=== PATIENT | female | born 1955 | race Caucasian/White ===

== ENCOUNTER → 2017-03-27 | Outpatient (CLI) | payer OTHER ==
--- NOTE | 2017-03-28 09:00 | MM ---
Reason for exam: screening (asymptomatic). Last mammogram was performed 1 year and 2 months ago. History: Patient is postmenopausal. Reduction of the left breast. Reduction of the right breast. Physical Findings: A clinical breast exam by your physician is recommended on an annual basis and results should be correlated with mammographic findings. MG Screening Mammo w CAD Bilateral CC and MLO view(s) were taken. Prior study comparison: January 13, 2016, right breast MG work up mamm w CAD RT. January 04, 2016, bilateral MG screening mammo w CAD. There are scattered fibroglandular densities. Finding: There are typically benign calcifications in both breasts. There is a chronic nodularity bilaterally, stable. No significant changes in finding since January 13, 2016 and January 04, 2016. ASSESSMENT: Benign, BI-RAD 2 RECOMMENDATION: Routine screening mammogram of both breasts in 1 year.
== END | disposition home or self-care (01) ==
LOC: RADMAMWWP 15:27
PROVIDERS: ATTEND Family Medicine
DX: Z12.31 Encounter for screening mammogram for malignant neoplasm of breast (principal)

== ENCOUNTER 2018-06-09 07:56 | Day surgery (SDC) | payer BC, OTHER ==
[2018-06-04 16:06] VITALS: BMI 38.7
[2018-06-09 08:45] VITALS: RESP 16; TEMP 97
[2018-06-09] MEDS: LACTATED RINGERS 1,000 ML IV SCH ×2 (08:59→10:02)
[2018-06-09 09:00] LABS: Glucose,Whole Blood 167 mg/dL (75-99)
[2018-06-09] MEDS ORDERED: PROPOFOL 10 MG/ML 20 ML VIAL IV ONE (10:03)
[2018-06-09] MEDS ORDERED: LIDOCAINE 1% INJ 10MG/ML (20 ML MDV) ONE (10:03)
[2018-06-09 11:16] VITALS: BP 107/58; PULSE 67
--- NOTE | 2018-06-09 14:25 | P.PCN ---
Date of Procedure: 06/09/18 Procedure(s) Performed: Procedure: Esophagogastroduodenoscopy and biopsy. Preoperative: Epigastric pain and suspected gastroesophageal reflux. Postoperative diagnosis: 1. Small sliding hiatal hernia with no obvious esophagitis or complicated reflux disease. 2. Mild antral gastritis and a medium-sized polyp in the cardia. 3. Biopsies obtained from the duodenum, antrum, cardia polyp and esophagus. Operation sedation: Was provided by anesthesia. Brief clinical history: The patient is a 62-year-old female who is scheduled for this evaluation because of epigastric and upper abdominal pains and suspected gastroesophageal reflux. Procedure: With the patient on her left lateral decubitus position and after informed consent and adequate sedation, I passed the Olympus-GIF 160 video upper endoscope through the cricopharyngeus down the esophagus. GE junction was around 37 cm from the incisors and there was a small sliding hiatal hernia but no obvious esophagitis or complicated reflux disease. The endoscope was then passed into the stomach which was insufflated with air and inspected in detail including the retroflex view in the cardia. There was some mottling and erythema in the antrum but no ulcers or erosions. A 1 cm polyp was noted in the cardia close to the GE junction which is unlikely to be causing any symptoms. Biopsies were obtained from that polyp at the end of the examination as I was biopsying other areas as mentioned below. Pyloric channel, duodenal bulb, post bulbar area and descending duodenum appeared healthy. Because of her symptoms, I obtained biopsies from the duodenum, antrum and esophagus as well as from the cardia polyp. The patient tolerated the procedure well. Plan: The patient was reassured. Will await biopsy results and make further plans based on her course and biopsy results. I would be happy to see in the office if her symptoms persist.
== END 2018-06-09 11:28 | disposition home or self-care (01) ==
LOC: ORWHC2ENDO 07:56
DX: K29.50 Unspecified chronic gastritis without bleeding (principal); K31.7 Polyp of stomach and duodenum; K44.9 Diaphragmatic hernia without obstruction or gangrene; I10 Essential (primary) hypertension; E11.9 Type 2 diabetes mellitus without complications; J45.909 Unspecified asthma, uncomplicated; Z88.1 Allergy status to other antibiotic agents; E78.5 Hyperlipidemia, unspecified; Z79.84 Long term (current) use of oral hypoglycemic drugs; Z79.899 Other long term (current) drug therapy
CPT/HCPCS: 88305; 43239; J2001; J2704

== ENCOUNTER → 2019-10-20 | Outpatient (CLI) | payer MEDICARE, OTHER ==
--- NOTE | 2019-10-22 10:18 | MM ---
Reason for exam: screening (asymptomatic). Last mammogram was performed 2 years and 7 months ago. History: Patient is postmenopausal. Reduction of the left breast. Reduction of the right breast. Physical Findings: A clinical breast exam by your physician is recommended on an annual basis and results should be correlated with mammographic findings. MG 3D Screening Mammo W/Cad Bilateral CC and MLO view(s) were taken. Prior study comparison: March 27, 2017, bilateral MG screening mammo w CAD. January 13, 2016, right breast MG work up mamm w CAD RT. Global asymmetry left upper outer quadrant. Post mammoplasty changes. No significant changes when compared with prior studies. ASSESSMENT: Benign, BI-RAD 2 RECOMMENDATION: Routine screening mammogram of both breasts in 1 year.
== END | disposition home or self-care (01) ==
LOC: RADMAMWWP 08:01
PROVIDERS: ATTEND Family Medicine
DX: Z12.31 Encounter for screening mammogram for malignant neoplasm of breast (principal)
CPT/HCPCS: 77063; 77067

== ENCOUNTER → 2019-10-23 | Outpatient (CLI) | payer MEDICARE, OTHER ==
--- NOTE | 2019-10-23 16:07 | BD ---
EXAMINATION TYPE: Axial Bone Density DATE OF EXAM: 10/23/2019 COMPARISON: Prior DEXA 2011. CLINICAL HISTORY: Disorder of bone. Height: 63.5 Weight: 210.5 FRAX RISK QUESTIONS: Alcohol (3 or more units per day): no Family History (Parent hip fracture): no Glucocorticoids (More than 3mos): no (Ex: prednisone, prednisolone, methylprednisolone, dexamethasone, and hydrocortisone). History of Fracture in Adulthood: no Secondary Osteoporosis: 1. Type 1 Diabetes: no 2. Hyperthyroidism: no 3. Menopause before 45: no 4. Malnutrition: yes 5. Chronic liver disease: no Rheumatoid Arthritis: no Current Tobacco Use: no RISK FACTORS HISTORY OF: Family History of Osteoporosis: no Active: yes Diet low in dairy products/other sources of calcium: yes Postmenopausal woman: age 53 Lost more than 2 inches in height since high school: no MEDICATIONS: lisinopril, metformin, omeprazole, atorvastatin, fish oil, vitamins Additional History: EXAM MEASUREMENTS: Bone mineral densitometry was performed using the [employer] System. Bone mineral density as measured about the Lumbar spine is: ----- L1-L4(G/cm2): 1.657 T Score Values are as follows: ----- L2: 4.6 ----- L3: 59 ----- L4: 3.8 ----- L1-L4: 4.0 Bone mineral density has: increased 28.5 % since study of: 12.24.2011 Bone mineral density about the R hip (g/cm2): 1.096 Bone mineral density about the L hip (g/cm2): 1.158 T Score values are as follows: -----R Neck: 0.4 -----L Neck: 0.9 -----R Total: 1.7 -----L Total: 1.9 Bone mineral density has: decreased -4.0 % since study of: 12.24.2011 IMPRESSION: Normal (Values between +1 and -1 indicate normal bone mass). Consider repeating this study in 5 year s or sooner if there is some new clinical indication. NOTE: T-SCORE=SD OF THE YOUNG ADULT MEAN.
== END ==
LOC: RADBDWWP 14:16
PROVIDERS: ATTEND Physician Assistant Medical
DX: M84.9 Disorder of continuity of bone, unspecified (principal); M89.8X9 Other specified disorders of bone, unspecified site
CPT/HCPCS: 77080

== ENCOUNTER → 2019-10-28 | Outpatient (CLI) | payer MEDICARE, OTHER ==
--- NOTE | 2019-10-28 11:04 | FL ---
EXAMINATION TYPE: FL barium swallow DATE OF EXAM: 10/28/2019 COMPARISON: None HISTORY: Dysphagia food sticking, vomiting TECHNIQUE: A double air contrast esophagram study is performed. Overhead radiographs and fluoroscopi c imaging is performed. FINDINGS: Esophagus dilates to normal caliber has normal contour to the gastroesophageal junction. Gastroesopha geal junction opens to normal caliber. There is a small self reducing sliding type hiatal hernia. A f ew tertiary contractions are evident within the distal esophagus during the exam. There is complete s tripping of the esophageal bolus in the horizontal drinking position. No reflux was observed. Fluoroscopy time: 44 seconds Images: 14 IMPRESSIONS: 1. Mild presbyesophagus. 2. Small self reducing sliding type hiatal hernia.
== END ==
LOC: RADUSWWP 09:50
PROVIDERS: ATTEND Physician Assistant Medical
DX: K22.8 Other specified diseases of esophagus (principal); K44.9 Diaphragmatic hernia without obstruction or gangrene; E11.9 Type 2 diabetes mellitus without complications
CPT/HCPCS: 74220

== ENCOUNTER → 2020-06-03 | Outpatient (CLI) | payer MEDICARE, OTHER | END | disposition home or self-care (01) | LOC: LABWHC1 11:30 | PROVIDERS: ATTEND Family Medicine | DX: R05 Cough (principal) | CPT/HCPCS: U0003; C9803 ==

== ENCOUNTER → 2020-11-18 | Outpatient (CLI) | payer MEDICARE, OTHER ==
--- NOTE | 2020-11-21 10:26 | MM ---
Reason for exam: screening (asymptomatic). Last mammogram was performed 1 year and 1 month ago. History: Patient is postmenopausal. Reduction of the left breast. Reduction of the right breast. Physical Findings: A clinical breast exam by your physician is recommended on an annual basis and results should be correlated with mammographic findings. MG 3D Screening Mammo W/Cad Bilateral CC and MLO view(s) were taken. Prior study comparison: October 20, 2019, bilateral MG 3d screening mammo w/cad. March 27, 2017, bilateral MG screening mammo w CAD. The breast tissue is heterogeneously dense. This may lower the sensitivity of mammography. Stable benign calcifications. There is no discrete abnormality. No significant changes when compared with prior studies. ASSESSMENT: Benign, BI-RAD 2 RECOMMENDATION: Routine screening mammogram of both breasts in 1 year.
== END | disposition home or self-care (01) ==
LOC: RADMAMWWP 08:55
PROVIDERS: ATTEND Family Medicine
DX: Z12.31 Encounter for screening mammogram for malignant neoplasm of breast (principal)
CPT/HCPCS: 77063; 77067

== ENCOUNTER → 2021-03-17 | Outpatient (CLI) | payer MEDICARE, OTHER ==
--- NOTE | 2021-03-17 16:09 | US ---
EXAMINATION TYPE: US transvaginal DATE OF EXAM: 03/17/2021 COMPARISON: NONE CLINICAL HISTORY: R10.2 pelvic and perineal pain. Pain and lump partial hysterectomy. TECHNIQUE: Transvaginal (TV EXAM MEASUREMENTS: Uterus: Surgically absent cm Endometrial Stripe: Surgically absent cm Right Ovary: Obscured by bowel gas Left Ovary: Obscured by bowel gas. 1. Uterus status post hysterectomy surgically absent 2. Endometrium: Surgically absent 3. Right Ovary: Obscured by overlying bowel gas 4. Left Ovary: Obscured by overlying bowel gas 5. Bilateral Adnexa: wnl 6. Posterior cul-de-sac: wnl IMPRESSION: 1. Status post hysterectomy. 2. The ovaries are not seen within the adnexa likely due to overlying bowel gas.
== END | disposition home or self-care (01) ==
LOC: RADUSWWP 15:20
PROVIDERS: ATTEND Family Medicine
DX: R10.2 Pelvic and perineal pain (principal); Z90.710 Acquired absence of both cervix and uterus
CPT/HCPCS: 76830

== ENCOUNTER → 2022-07-24 | Outpatient (CLI) | payer MEDICARE, OTHER ==
--- NOTE | 2022-07-25 13:23 | XR ---
Lumbosacral spine HISTORY: Back pain 5 views of lumbosacral spine submitted. No comparisons. Lumbar vertebral bodies show preserved height and there is a spinal curvature convex left centered at L3. Bone mineralization is reduced. Is multilevel spondylosis. Loss of disc height is present at int ervertebral levels, multilevel vacuum disc phenomenon is present. Sclerosis is present in the posteri or elements. Atherosclerotic vascular calcifications are present in the aorta iliac distribution. Joshua gical clips are present in the right upper quadrant. No evident spondylolysis. IMPRESSION: Degenerative disc disease, facet arthropathy, osteopenia, scoliosis
== END | disposition home or self-care (01) ==
LOC: RADXRYALE 16:24
PROVIDERS: ATTEND Physician Assistant Medical
DX: M51.37 Other intervertebral disc degeneration, lumbosacral region (principal); M47.817 Spondylosis without myelopathy or radiculopathy, lumbosacral region; M41.87 Other forms of scoliosis, lumbosacral region; M85.88 Other specified disorders of bone density and structure, other site
CPT/HCPCS: 72110

== ENCOUNTER → 2022-08-01 | Outpatient (CLI) | payer MEDICARE, OTHER ==
--- NOTE | 2022-08-02 08:50 | MM ---
Reason for Exam: Screening (asymptomatic). Last mammogram was performed 1 year(s) and 8 month(s) ago. Patient History: Menarche at age 8. First Full-Term at age 15. Hysterectomy at age 53. Postmenopausal. Reduction on the Right side. Reduction on the Left side. Risk Values: Anjelica 5 year model risk: 1.4%. NCI Lifetime model risk: 4.4%. Prior Study Comparison: 06/04/2000 Left Diagnostic Ultrasound, [facility]. 04/29/2007 Bilateral Diagnostic Mammogram, [facility]. 02/10/2014 Bilateral Screening Mammogram, [facility]. 01/13/2016 Right Diagnostic Mammogram, [facility]. 01/13/2016 Right Diagnostic Ultrasound, [facility]. 03/27/2017 Bilateral Screening Mammogram, [facility]. 10/20/2019 Bilateral Screening Mammogram, [facility]. 11/18/2020 Bilateral Screening Mammogram, [facility]. Tissue Density: The breast tissue is heterogeneously dense. This may lower the sensitivity of mammography. Findings: Analyzed By CAD. There is no suspicious group of microcalcifications or new suspicious mass in either breast. Stable benign calcifications. Chronic nodularity within the right breast. No significant change from prior exams. Overall Assessment: Benign, BI-RAD 2 Management: Screening Mammogram of both breasts in 1 year. A clinical breast exam by your physician is recommended on an annual basis and results should be correlated with mammographic findings. Electronically signed and approved by: Andres Lowry D.O.
== END | disposition home or self-care (01) ==
LOC: RADMAMWWP 16:46
PROVIDERS: ATTEND Family Medicine
DX: Z12.31 Encounter for screening mammogram for malignant neoplasm of breast (principal); Z78.0 Asymptomatic menopausal state
CPT/HCPCS: 77063; 77067

== ENCOUNTER → 2023-01-30 | Outpatient (CLI) | payer MEDICARE, OTHER ==
--- NOTE | 2023-01-30 21:05 | MR ---
EXAMINATION TYPE: MR lumbar spine wo con DATE OF EXAM: 01/30/2023 10:18 AM COMPARISON: . CLINICAL INDICATION:Female, 67 years old with history of M51.36 OTHER INTERVERTEBRAL DISC DEGENERATIO N, LUM; PHH, Low back pain into rt lower extremity TECHNIQUE: Multi planar, multi sequence imaging was performed utilizing: T1-weighted, T2-weighted, a nd turbo inversion recovery imaging of the lumbar spine. IV Contrast: cc . None. FINDINGS: Alignment: The lumbar vertebral bodies have preserved heights and alignment. Cord: The conus medullaris and the distal spinal cord appear unremarkable with regards to their signa l intensity and morphology. Bones/Discs: Bone signal is within normal limits. No abnormal bony edema on inversion recovery sequen toma. Multilevel degenerative disc disease is noted and most pronounced at the . Intervertebral disc s ignal is maintained. T12-L1: No evidence of significant spinal canal stenosis or neural foraminal stenosis. L1-L2: Disc bulge and facet joint arthropathy result in mild spinal canal and moderate bilateral neur al foraminal stenosis. L2-L3: Disc bulge, osteophytes and facet joint arthropathy result in severe spinal canal and moderate to severe right and mild left bilateral neural foraminal stenosis. L3-L4: Disc bulge and facet joint arthropathy result in moderate spinal canal and moderate bilateral neural foraminal stenosis. L4-L5: Disc bulge with possible superimposed central protrusion and facet joint arthropathy result in severe spinal canal and moderate to severe bilateral neural foraminal stenosis. L5-S1: The disc is rounded posterior morphology without significant spinal canal stenosis. Facet join t arthropathy with moderate to severe neural foraminal stenosis. Other findings: Right high T2 signal renal cyst. IMPRESSION: 1. L2-L3 and L4-L5 severe spinal canal stenosis and bunching of the cauda equina. 2. Multilevel disc degeneration changes with moderate multilevel moderate to severe neural foraminal stenosis as described above.
== END | disposition home or self-care (01) ==
LOC: RADMRIMAIN 09:21
PROVIDERS: ATTEND Family Medicine
DX: M51.36 Other intervertebral disc degeneration, lumbar region (principal); M99.73 Connective tissue and disc stenosis of intervertebral foramina of lumbar region
CPT/HCPCS: 72148

== ENCOUNTER → 2023-06-14 | Outpatient (CLI) | payer MEDICARE, OTHER ==
--- NOTE | 2023-06-14 09:56 | MR ---
EXAMINATION TYPE: MR lumbar spine wo con DATE OF EXAM: 06/14/2023 COMPARISON: 01/30/2023 HISTORY: Low back pain, numbness scott lower extremities TECHNIQUE: T1 and T2 axial and sagittal images of the lumbar spine are submitted. FINDINGS: There is no abnormal signal seen within the visualized spinal cord or paraspinal soft tissu es. Simple appearing subcentimeter right renal cyst. At L1-2 there is severe degenerative disc disease. Posterior spondylosis. Circumferential disc bulgin g with center and ligamentum flavum hypertrophy but no canal stenosis. No discrete herniation. Neural foramina At L2-3 there is severe degenerative disc disease with retrolisthesis of L2 relative to L3 stable. A central disc broad-based protrusion catheter device spur. Facet arthropathy and ligamentum flavum hyp ertrophy contribute to severe canal stenosis and moderate left and severe right foraminal encroachmen t. Could not exclude a small extruded disc fragment posterior to the upper margin of L3 vertebral seg ment. At L3-4 there is degenerative disc disease with advanced facet arthropathy. Ligamentum flavum hypertr ophy and diffuse disc bulging results in mild canal stenosis. There is moderate bilateral foraminal a pproach. At L4-5 there is broad-based disc herniation with advanced facet arthropathy and ligamentum flavum hy pertrophy. Severe canal stenosis. Moderate to severe bilateral foraminal encroachment. At L5-S1 there is degenerative disc disease with advanced facet arthropathy. Broad-based disc bulging with moderate canal stenosis. There is bilateral lateral recess stenosis. Moderate right and severe left foraminal encroachment. IMPRESSION: 1. Multilevel degenerative disc disease appears similar to the prior exam. Multilevel disc herniation , bulging and hypertrophic facet arthropathy contributes to multilevel canal stenosis and significant foraminal encroachment similar to the prior exam.
== END | disposition home or self-care (01) ==
LOC: RADMRIMAIN 08:52
PROVIDERS: ATTEND Orthopaedic Surgery
DX: M51.16 Intervertebral disc disorders with radiculopathy, lumbar region (principal); M47.816 Spondylosis without myelopathy or radiculopathy, lumbar region; M43.16 Spondylolisthesis, lumbar region; M48.062 Spinal stenosis, lumbar region with neurogenic claudication
CPT/HCPCS: 72148

== ENCOUNTER → 2023-07-19 | Outpatient (CLI) | payer MEDICARE, OTHER ==
[2023-07-19 15:38] LABS: HCT 39.7 % (37.2-46.3); HGB 12.7 d/dL (12.0-15.0); MCH 31.4 pg (27.0-32.0); Mean Platelet Volume 10.5 FL (9.5-12.2); NRBC Per 100 WBC 0 X 10*3/uL (0.00-0.01); Platelet Count 298 X 10*3/uL (140-440); RBC 4.05 X 10*6/uL (4.10-5.20); RDW 14.3 % (11.5-14.5); WBC 7.35 X 10*3/uL (4.50-10.00)
[2023-07-19 16:59] LABS: Blood Urea Nitrogen 19.9 mg/dL (9.0-27.0); Carbon Dioxide 26.9 mmol/L (21.6-31.8); Chloride 102 mmol/L (96-109); Potassium 3.4 mmol/L (3.5-5.5); Sodium 142 mmol/L (135-145)
== END | disposition home or self-care (01) ==
LOC: LABWHC1 10:08
PROVIDERS: ATTEND Internal Medicine Interventional Cardiology
DX: Z01.810 Encounter for preprocedural cardiovascular examination (principal)
CPT/HCPCS: 36415; 80051; 82565; 84520; 85027

== ENCOUNTER 2023-08-20 05:41 | Day surgery (SDC) | payer MEDICARE, OTHER ==
[2023-08-20] MEDS ORDERED: ALPRAZolam 0.25 MG TAB PO PRN (06:00)
[2023-08-20] MEDS ORDERED: NITROGLYCERIN SL TABS 0.4 MG TAB SUBLINGUAL PRN (06:00)
[2023-08-20] MEDS ORDERED: HEPARIN SODIUM,PORCINE (1 ML) 2,500 UNIT in SODIUM CHLORIDE 0.9% 250 ML IRRIGATION PRN (06:00)
[2023-08-20] MEDS ORDERED: SODIUM CHLORIDE 0.9% 1,000 ML in EMPTY BAG 1 BAG IV SCH (06:00)
[2023-08-20] MEDS ORDERED: HEPARIN SODIUM,PORCINE 10,000 UNIT in SODIUM CHLORIDE 0.9% 1,000 ML IRRIGATION PRN (06:00)
[2023-08-20] MEDS ORDERED: ALPRAZolam 0.5 MG TAB PO PRN (06:00)
[2023-08-20 06:36] LABS: Basophils % (A) 0 %; Eosinophils # (A) 0.1 k/uL (0-0.7); Eosinophils % (A) 2 %; HCT 39.6 % (34.0-46.0); HGB 13.4 gm/dL (11.4-16.0); Lymphocytes # (A) 2.3 k/uL (1.0-4.8); Lymphocytes % (A) 36 %; MCH 31.7 pg (25.0-35.0); MCHC 33.8 g/dL (31.0-37.0); MCV 93.8 fL (80.0-100.0); Mean Platelet Volume 7.7; Monocytes # (A) 0.3 k/uL (0-1.0); Monocytes % (A) 5 %; Neutrophils # (A) 3.5 k/uL (1.3-7.7); Neutrophils % (A) 55 %; Platelet Count 292 k/uL (150-450); RBC 4.22 m/uL (3.80-5.40); RDW 14.2 % (11.5-15.5); WBC 6.3 k/uL (3.8-10.6)
[2023-08-20 06:38] LABS: Glucose,Whole Blood 122 mg/dL (70-110)
[2023-08-20 06:53] LABS: African American GFR (CKD) >90 (>60 ml/min/1.73 sqM); Anion Gap 11 mmol/L; Blood Urea Nitrogen 20 mg/dL (7-17); Calcium 9.9 mg/dL (8.4-10.2); Carbon Dioxide 29 mmol/L (22-30); Chloride 97 mmol/L (98-107); Glucose 120 mg/dL (74-99); Non-African American GFR(CKD) 79 (>60 ml/min/1.73 sqM); Potassium 3.1 mmol/L (3.5-5.1); Sodium 137 mmol/L (137-145)
[2023-08-20 06:55] VITALS: RESP 18; TEMP 97.6
[2023-08-20] MEDS ORDERED: ATORVASTATIN 80 MG TAB PO ONE (07:00)
[2023-08-20] MEDS ORDERED: ASPIRIN 325 MG TAB PO ONE (07:00)
[2023-08-20] MEDS ORDERED: LIDOCAINE 1% INJ 10MG/ML (30 ML VIAL-PF) SQ ONE ×2 (08:36→08:41)
[2023-08-20] MEDS ORDERED: HEPARIN SODIUM 1,000 UN/ML (10ML VL) ONE (08:40)
[2023-08-20] MEDS ORDERED: MIDAZOLAM 2 MG/2 ML VIAL IVP ONE (08:41)
[2023-08-20] MEDS ORDERED: HEPARIN SODIUM 1,000 UN/ML (10ML VL) IV ONE (08:41)
[2023-08-20] MEDS ORDERED: SODIUM CHLORIDE 0.9% 1,000 ML IV SCH (08:45)
[2023-08-20] MEDS ORDERED: RX INFO: IV CONTRAST WAS GIVEN 1 EACH MISC MISCELLANE PRN (08:45)
--- NOTE | 2023-08-20 08:48 | P.PCN ---
Date of Procedure: 08/20/23 Operative Findings: CARDIAC CATHETERIZATION PERFORMING PHYSICIAN: Booker Arcos MD, RPVI PROCEDURE PERFORMED: 1. Selective right and left coronary angiogram 2. Ultrasound-guided access of the right radial artery INDICATION: Abnormal myocardial perfusion imaging stress as then at this patient was going to undergo noncardiac surgery COMPLICATION: None APPROACH: Right radial artery LEVEL OF SEDATION: Moderate with a sedation length of 11 minutes PROCEDURE DESCRIPTION: After obtaining an informed consent, the patient was brought to cardiac recyclable materials collector. Local anesthesia was performed using lidocaine subcutaneously. The right radial artery was cannulated using Seldinger technique, the guidewire passed easily, following that we advanced a 5-Pakistani sheath dilator assembly, the wire and dilator were removed and sheath was flushed. Following that, 2 mg of verapamil along with 5000 unit heparin were given. Selective right and left coronary angiogram using a 6-Pakistani JR4 and JL 3.5 catheters. The procedure was completed there was no complication. SELECTIVE CORONARY ANGIOGRAM: The right coronary artery: Medium caliber vessel nondominant vessel Left main: Angiographically normal The left circumflex: Large-caliber vessel and a dominant vessel. Its angiographically normal. Gives rise into an OM1 which works as a ramus intermedius and appeared to be angiographically normal. Distally bifurcates into PDA and PLV branches. The left anterior descending artery: Is angiographically normal. It gives rises into a large diagonal branch which seems to be angiographically normal CONCLUSION: 1. Normal coronary angiogram POSTPROCEDURE MANAGEMENT: Medical treatment
[2023-08-20] MEDS ORDERED: IOPAMIDOL-370 100ML BTL INJ ONE (08:52)
[2023-08-20 11:32] VITALS: PULSE 54
[2023-08-20 12:21] VITALS: BP 130/72
== END 2023-08-20 12:21 | disposition home or self-care (01) ==
LOC: CATHCVL 05:41
PROVIDERS: ATTEND Internal Medicine Interventional Cardiology
DX: I25.10 Atherosclerotic heart disease of native coronary artery without angina pectoris (principal); I10 Essential (primary) hypertension; E78.5 Hyperlipidemia, unspecified; E11.9 Type 2 diabetes mellitus without complications; I65.23 Occlusion and stenosis of bilateral carotid arteries; I47.10 Supraventricular tachycardia, unspecified; Z79.899 Other long term (current) drug therapy
CPT/HCPCS: 93454; 80048; 85025; C1769; C1894; J2250; J2001; J1644; Q9967

== ENCOUNTER → 2024-05-12 | Outpatient (CLI) | payer MEDICARE, OTHER ==
--- NOTE | 2024-05-14 12:10 | MM ---
Reason for Exam: Screening (asymptomatic). Last mammogram was performed 1 year(s) and 9 month(s) ago. Patient History: Menarche at age 8. First Full-Term at age 15. Hysterectomy at age 53. Postmenopausal. Reduction on the Right side. Reduction on the Left side. Risk Values: Anjelica 5 year model risk: 1.4%. NCI Lifetime model risk: 4.0%. Prior Study Comparison: 10/20/2019 Bilateral Screening Mammogram, [facility]. 11/18/2020 Bilateral Screening Mammogram, [facility]. 08/01/2022 Bilateral MG 3D screening mammo w/cad, [facility]. Tissue Density: The breasts are heterogeneously dense, which may obscure small masses. Findings: Analyzed By CAD. There is no suspicious group of microcalcifications or new suspicious mass in either breast. Overall Assessment: Benign, BI-RAD 2 Management: Screening Mammogram of both breasts in 1 year. . Patient should continue monthly self-breast exams. A clinical breast exam by your physician is recommended on an annual basis. This exam should not preclude additional follow-up of suspicious palpable abnormalities. Note on Anjelica scores and lifetime risk: 1. A Anjelica score greater than 3% is considered moderate risk. If this is the case, consider specialist referral to assess eligibility for a risk reducing agent. 2. If overall lifetime risk for the development of breast cancer is 20% or higher, the patient may qualify for future screening with alternating mammogram and breast MRI. Electronically signed and approved by: Wilfred Ewing M.D. Radiologis
== END | disposition home or self-care (01) ==
LOC: RADMAMWWP 14:53
PROVIDERS: ATTEND Family Medicine
DX: Z12.31 Encounter for screening mammogram for malignant neoplasm of breast (principal); R92.333 Mammographic heterogeneous density, bilateral breasts; Z78.0 Asymptomatic menopausal state
CPT/HCPCS: 77063; 77067

== ENCOUNTER 2025-01-25 12:06 | Emergency (ER) | payer MEDICARE, OTHER ==
--- NOTE | 2025-01-25 12:20 | ED ---
General Adult HPI - General Chief complaint: Head Injury Stated complaint: Fall, head injury Time Seen by Provider: 01/25/25 12:10 Source: patient, RN notes reviewed, old records reviewed Mode of arrival: ambulatory Limitations: no limitations - History of Present Illness Initial comments: this is a 69-year-old female who presents to the emergency department because she fell on Saturday and hit her forehead. Patient states she did not lose conscious she did not become dazed. Patient states since then blood is accumulated below both of her eyes but there is no pain in that area. Patient states she had a mild headache mild nausea and feels some mild pressure in her forehead area. Patient states that hematoma on her forehead has gone down but since its persisted she decided to get checked out. Patient denies any facial pain. Patient denies any neck pain. Patient has any numbness weakness. Patient states the reason for the fall was she tripped on the end of a [place] - Related Data Home Medications Medication Instructions Recorded Confirmed Losartan [Cozaar] 50 mg PO DAILY 07/19/23 01/25/25 Omeprazole [PriLOSEC] 20 mg PO BID 07/19/23 01/25/25 Pioglitazone [Actos] 30 mg PO DAILY 07/19/23 01/25/25 Rosuvastatin [Crestor] 40 mg PO HS 07/19/23 01/25/25 hydroCHLOROthiazide 25 mg PO DAILY 07/19/23 01/25/25 Fish Oil(Unknown Dose) 1 cap PO DAILY 01/25/25 01/25/25 Vitamin D3(Unknown Dose) 1 tab PO DAILY 01/25/25 01/25/25 metFORMIN HCL ER [Glucophage XR] 1,000 mg PO BID 01/25/25 01/25/25 oxyBUTYnin chloride [oxyBUTYnin 5 mg PO DIRECTED 01/25/25 01/25/25 chloride ER] Allergies Allergy/AdvReac Type Severity Reaction Status Date / Time levofloxacin [From Levaquin] Allergy Swelling/Joint Verified 01/25/25 13:46 Pain Review of Systems ROS Statement: Those systems with pertinent positive or pertinent negative responses have been documented in the HPI. ROS Other: All systems not noted in ROS Statement are negative. Past Medical History Past Medical History: Asthma, Diabetes Mellitus, GERD/Reflux, Hyperlipidemia, Hypertension, Musculoskeletal Disorder, Osteoarthritis (OA) Additional Past Medical History / Comment(s): exercise induced asthma, recent testing for upcoming spinal fusion that wasn't normal History of Any Multi-Drug Resistant Organisms: MRSA Date of last positivie culture/infection: 07/18/23 MDRO Source:: Vaginal Past Surgical History: Breast Surgery, Cholecystectomy, Hysterectomy, Joint Replacement, Orthopedic Surgery Additional Past Surgical History / Comment(s): right knee replaced, breast reduction. spinal fusion Past Anesthesia/Blood Transfusion Reactions: No Reported Reaction Past Psychological History: No Psychological Hx Reported Smoking Status: Never smoker - Past Family History Father History Unknown: Yes Family Medical History: No Reported History Mother Family Medical History: Congestive Heart Failure (CHF) General Exam - General Exam Comments Initial Comments: GENERAL: Patient is well-developed and well-nourished. Patient is nontoxic and well- hydrated and is in mild distress. ENT: Neck is soft and supple. No significant lymphadenopathy is noted. Oropharynx is clear. Moist mucous membranes. Neck has full range of motion without eliciting any pain. EYES: The sclera were anicteric and conjunctiva were pink and moist. Extraocular movements were intact and pupils were equal round and reactive to light. Eyelids were unremarkable. Patient has ecchymosis under both eyes. Patient has no facial tenderness. PULMONARY: Unlabored respirations. Good breath sounds bilaterally. No audible rales rhonchi or wheezing was noted. CARDIOVASCULAR: There is a regular rate and rhythm without any murmurs gallops or rubs. SKIN: Skin is clear with no lesions or rashes and otherwise unremarkable. NEUROLOGIC: Patient is alert and oriented x3. Cranial nerves II through XII are grossly intact. Motor and sensory are also intact. Normal speech, volume and content. Symmetrical smile. MUSCULOSKELETAL: Normal extremities with adequate strength and full range of motion. No lower extremity swelling or edema. No calf tenderness. LYMPHATICS: No significant lymphadenopathy is noted PSYCHIATRIC: Normal psychiatric evaluation. Limitations: no limitations Course Vital Signs 01/25/25 12:07 Temperature 98.6 F Pulse Rate 65 Respiratory 20 Rate Blood Pressure 130/78 O2 Sat by Pulse 96 Oximetry Medical Decision Making - Medical Decision Making Was pt. sent in by a medical professional or institution (, PA, CUSTOMER ENGAGEMENT MANAGER, urgent care, hospital, or long term...) When possible be specific @ -No Did you speak to anyone other than the patient for history (EMS, parent, family, police, friend...)? What history was obtained from this source @ -No Did you review nursing and triage notes (agree or disagree)? Why? @ -I reviewed and agree with nursing and triage notes Were old charts reviewed (outside hosp., previous admission, EMS record, old EKG, old radiological studies, urgent care reports/EKG's, long term records)? Report findings @ -No old charts were reviewed Differential Diagnosis? @ -Skull fracture, subdural, epidural, subarachnoid, intraparenchymal hemorrhage, this is not an all-inclusive list EKG interpreted by me (3pts min.). @ -As above X-rays interpreted by me (1pt min.). @ -Lumbosacral spine showed no acute abnormality CT interpreted by me (1pt min.). @ -CT of the brain showed no acute abnormality there was 1 area of hyperdensity in the brainstem so a MRI was done. MRI showed no acute abnormality. U/S interpreted by me (1pt. min.). @ -None done What testing was considered but not performed or refused? (CT, X-rays, U/S, labs)? Why? @ -None What meds were considered but not given or refused? Why? @ -None Did you discuss the management of the patient with other professionals (professionals i.e. , PA, CUSTOMER ENGAGEMENT MANAGER, lab, RT, psych nurse, social media sr strategy manager, cover mat machine operator, teacher, fisheries officer, case checker)? Give summary @ -No Was smoking cessation discussed for >3mins.? @ -No Was critical care preformed (if so, how long)? @ -No Were there social determinants of health that impacted care today? How? (Homelessness, low income, unemployed, alcoholism, drug addiction, transportation, low edu. Level, literacy, decrease access to med. care, assisted, rehab)? @ -No Was there de-escalation of care discussed even if they declined (Discuss DNR or withdrawal of care, Hospice)? DNR status @ -No What co-morbidities impacted this encounter? (DM, HTN, Smoking, COPD, CAD, Cancer, CVA, ARF, Chemo, Hep., AIDS, mental health diagnosis, sleep apnea, morbid obesity)? @ -None Was patient admitted / discharged? Hospital course, mention meds given and route, prescriptions, significant lab abnormalities, going to OR and other pertinent info. @ -Patient's radiological studies were all negative. Patient continues to have a mild headache which she will be discharged home to follow-up as needed. Undiagnosed new problem with uncertain prognosis? @ -No Drug Therapy requiring intensive monitoring for toxicity (Heparin, Nitro, I nsulin, Cardizem)? @ -No Were any procedures done? @ -No Diagnosis/symptom? @ -Head injury Acute, or Chronic, or Acute on Chronic? @ -Acute Uncomplicated (without systemic symptoms) or Complicated (systemic symptoms)? @ -Complicated Side effects of treatment? @ -No Exacerbation, Progression, or Severe Exacerbation? @ -No Poses a threat to life or bodily function? How? (Chest pain, [place], [place], pneumonia, PE, COPD, DKA, ARF, appy, cholecystitis, CVA, Diverticulitis, Homicidal, Suicidal, threat to staff... and all critical care pts) @ -No Disposition Clinical Impression: Closed head injury Disposition: HOME SELF-CARE Condition: Good Instructions (If sedation given, give patient instructions): Concussion (ED) Is patient prescribed a controlled substance at d/c from ED?: No Referrals: Cruz Avery DO [Primary Care Provider] - 1-2 days Time of Disposition: 16:42
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
[2025-01-25] MEDS: ACETAMINOPHEN TAB 500 MG TAB PO STA (13:31)
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
[2025-01-25 16:41] VITALS: BP 119/72; PULSE 53; RESP 18; TEMP 98.3
== END 2025-01-25 16:53 | disposition home or self-care (01) ==
LOC: EC 12:06
DX: S09.90XA Unspecified injury of head, initial encounter (principal); Z88.1 Allergy status to other antibiotic agents; W01.0XXA Fall on same level from slipping, tripping and stumbling without subsequent striking against object, initial encounter; Y92.410 Unspecified street and highway as the place of occurrence of the external cause
CPT/HCPCS: 70450; 70551; 72110; 99284